=== PATIENT | female | born 1980 | race Caucasian/White ===

== ENCOUNTER 2017-06-29 08:03 | Outpatient (CLI) | payer OTHER ==
[~2017-06-29 08:03] MED LIST: ACETAMINOPHEN 325 MG TABLET PO PRN; DIPHENHYDRAMINE HCL 50 MG/ML VIAL IV PRN; IRON DEXTRAN COMPLEX 25 MG in SYRINGE, DISPOSABLE, 1 EACH IV PRN; IRON DEXTRAN COMPLEX 975 MG in NORMAL SALINE 1000 ML 1,000 ML IV PRN; NORMAL SALINE 250 ML IV PRN
[2017-06-29 08:59] VITALS: BP 102/60
== END 2017-06-29 14:00 | disposition home or self-care (01) ==
LOC: II 08:03 → 5TH 08:06 → II 14:00
PROVIDERS: ATTEND Internal Medicine
PROC: 3E033GC Introduction of Other Therapeutic Substance into Peripheral Vein, Percutaneous Approach (ICD-10-PCS; principal; 2017-06-29)
DX: D50.8 Other iron deficiency anemias (principal)
CPT/HCPCS: 96365; 96366; 96374; 96375; J1200; J1750; J7030; J3490

== ENCOUNTER 2018-08-25 05:40 | Day surgery (SDC) | payer OTHER ==
[2018-08-24 12:23] LABS: HEMATOCRIT 41.8 % (36.0-47.0); HEMOGLOBIN 14.1 g/dL (12.0-15.5); MEAN CORPUSCULAR HEMOGLOBIN 30.9 pg (27.0-33.4); MEAN CORPUSCULAR HGB CONC 33.6 g/dL (32.0-36.0); MEAN CORPUSCULAR VOLUME 92 fl (80-97); PLATELET COUNT 229 10^3/uL (150-450); RED BLOOD COUNT 4.55 10^6/uL (3.72-5.28); RED CELL DISTRIBUTION WIDTH 13.6 % (11.5-14.0); WHITE BLOOD COUNT 5.4 10^3/uL (4.0-10.5)
[2018-08-24 12:29] LABS: APPEARANCE,URINE CLEAR; BILIRUBIN,URINE NEGATIVE (NEGATIVE); COLOR,URINE STRAW; GLUCOSE, URINE NEGATIVE (NEGATIVE); KETONES,URINE NEGATIVE (NEGATIVE); LEUKOCYTE ESTERASE,URINE NEGATIVE (NEGATIVE); NITRITE,URINE NEGATIVE (NEGATIVE); PROTEIN,URINE NEGATIVE (NEGATIVE); URINE SPECIFIC GRAVITY 1.005; UROBILINOGEN,URINE NEGATIVE mg/dL (<2.0)
[2018-08-24 12:52] LABS: ALANINE AMINOTRANSFERASE 22 U/L (9-52); ALBUMIN 4.7 g/dL (3.5-5.0); ALKALINE PHOSPHATASE 40 U/L (38-126); ANION GAP 10 (5-19); ASPARTATE AMINO TRANSFERASE 24 U/L (14-36); BILIRUBIN,DIRECT 0.3 mg/dL (0.0-0.4); BILIRUBIN,TOTAL 0.6 mg/dL (0.2-1.3); BLOOD UREA NITROGEN 12 mg/dL (7-20); CALCIUM 9.9 mg/dL (8.4-10.2); CARBON DIOXIDE 27 mmol/L (22-30); CHLORIDE 101 mmol/L (98-107); GLUCOSE 82 mg/dL (75-110); POTASSIUM 4.6 mmol/L (3.6-5.0); TOTAL PROTEIN 7.7 g/dL (6.3-8.2)
[~2018-08-25 05:40] MED LIST changes: -ACETAMINOPHEN 325 MG TABLET PO PRN; +CEFAZOLIN 2 GM/D5W RTU 2 GM/50 ML RTUPB IV ONE; +CEFAZOLIN 2 GM/D5W RTU 2 GM/50 ML RTUPB IV SCH; -DIPHENHYDRAMINE HCL 50 MG/ML VIAL IV PRN; -IRON DEXTRAN COMPLEX 25 MG in SYRINGE, DISPOSABLE, 1 EACH IV PRN; -IRON DEXTRAN COMPLEX 975 MG in NORMAL SALINE 1000 ML 1,000 ML IV PRN; +LACTATED RINGERS 1000 ML IV PRN; +LIDOCAINE 0.5% INJ-PF (5 MG/ML) 50 ML SDV SUBCUT PRN; -NORMAL SALINE 250 ML IV PRN
[2018-08-25] MEDS ORDERED: KETOROLAC TROMETHAMINE 60 MG/2 ML SDV ONE (07:05)
[2018-08-25] MEDS ORDERED: FENTANYL CITRATE INJ/PF 100 MCG/2 ML AMPUL ONE ×2 (07:05→10:29)
[2018-08-25] MEDS ORDERED: ONDANSETRON HCL INJ/PF 4 MG/2 ML SDV ONE (07:06)
[2018-08-25] MEDS ORDERED: MIDAZOLAM 2 MG/2 ML INJ ONE (07:06)
[2018-08-25] MEDS ORDERED: ACETAMINOPHEN 1,000 MG/100 ML RTUPB IV ONE (07:06)
[2018-08-25] MEDS ORDERED: PROPOFOL INJ 200 MG/20 ML VIAL IV ONE (07:06)
[2018-08-25] MEDS ORDERED: HYDROMORPHONE HCL INJ/PF 2 MG/ML AMPULE ONE (07:06)
[2018-08-25] MEDS ORDERED: DEXAMETHASONE SOD PHOSPHATE INJ 4 MG/1 ML VIAL ONE (07:06)
[2018-08-25] MEDS ORDERED: DIPHENHYDRAMINE HCL 50 MG/ML VIAL IV PRN (08:09)
[2018-08-25] MEDS ORDERED: OXYCODONE-ACETAMINOPHEN 5-325 MG TABLET PO PRN ×3 (08:09→10:22)
[2018-08-25] MEDS ORDERED: PROMETHAZINE HCL INJ 25 MG/1 ML VIAL IV PRN ×2 (08:09)
[2018-08-25] MEDS ORDERED: ONDANSETRON HCL INJ/PF 4 MG/2 ML SDV IV PRN (08:09)
[2018-08-25] MEDS ORDERED: FENTANYL CITRATE INJ/PF 100 MCG/2 ML AMPUL IV PRN ×2 (08:09)
[2018-08-25] MEDS ORDERED: MEPERIDINE HCL/PF INJ 25 MG/1 ML DISP.SYRIN IV PRN (08:09)
[2018-08-25] MEDS ORDERED: MORPHINE SULFATE 10 MG/ML INJ IV PRN (08:09)
[2018-08-25] MEDS ORDERED: VECURONIUM BROMIDE INJ 10 MG VIAL IV ONE (08:37)
[2018-08-25] MEDS ORDERED: GLYCOPYRROLATE 1 MG/5 ML SYRINGE ONE (08:37)
[2018-08-25] MEDS ORDERED: NEOSTIGMINE METHYLSULFATE 10 MG/10 ML VIAL ONE (08:37)
[2018-08-25] MEDS ORDERED: SUCCINYLCHOLINE CHLORIDE INJ 200 MG/10 ML VIAL ONE (08:37)
[2018-08-25] MEDS ORDERED: ALPRAZOLAM 0.5 MG TABLET PO PRN (10:21)
[2018-08-25] MEDS ORDERED: DIPH/PERTUSS(ACELL)/TETANUS VAC/PF 0.5 ML SYR (>=10YO) IM PRN (10:22)
[2018-08-25] MEDS ORDERED: ACETAMINOPHEN 325 MG TABLET PO PRN (10:22)
[2018-08-25] MEDS ORDERED: SIMETHICONE 80 MG TAB.CHEW PO PRN (10:22)
[2018-08-25] MEDS ORDERED: ACETAMINOPHEN 1,000 MG/100 ML RTUPB IV PRN (10:22)
[2018-08-25] MEDS ORDERED: HYDROMORPHONE HCL INJ/PF 2 MG/ML AMPULE IV PRN (10:22)
[2018-08-25] MEDS ORDERED: MEASLES,MUMPS&RUBELLA VACC/PF 0.5 ML VIAL SUBCUT PRN (10:22)
[2018-08-25] MEDS ORDERED: RINGERS SOLUTION,LACTATED 1,000 ML IV PRN (10:22)
[2018-08-25] MEDS: FENTANYL CITRATE INJ/PF 100 MCG/2 ML AMPUL IV PRN ×2 (10:32→10:45)
--- NOTE | 2018-08-25 10:37 | Operative Report ---
Operative Report DATE OF SURGERY: 08/25/18 PREOPERATIVE DIAGNOSIS: Patient has uterine pain and heavy menses with pelvic c ongestion syndrome as well as adhesions from her previous over the bladder. POSTOPERATIVE DIAGNOSIS: Same OPERATION: Da Jacques hysterectomy and bilateral salpingectomy as well as lysis of adhesions. SURGEON: SHARMIN ELAINE ANESTHESIA: GA TISSUE REMOVED OR ALTERED: Uterus and fallopian tubes COMPLICATIONS: None ESTIMATED BLOOD LOSS: 50 cc INTRAOPERATIVE FINDINGS: The tubes and ovaries looked normal. Patient has a lot of varicosity laterally on each side of the uterus and adhesions overlying the bladder flap from her previous PROCEDURE: Patient was taken to the OR and placed in supine position. General anesthesia was induced. Her were prepared and draped in a sterile fashion. Her bladder was drained with a Anne catheter. A speculum was placed in the vagina and the cervix was grasped with a tenaculum. The uterus was sounded to 10 cm. The cervix was dilated in a V care uterine manipulator was placed. An incision was made above the umbilicus approximately 5 cm. The fascia was grasped and elevated and incised. This allowed the placement of a blunt port. Laparoscopy confirmed appropriate placement. The lateral incisions were made lateral to the inferior epigastric vessels in the lateral ports were placed under laparoscopic visualization. Also a right lower quadrant port for insufflation was placed under laparoscopic visualization. The patient was placed in steep Trendelenburg at this point and the robot was brought to the patient and docked. View of the pelvis was good. There were some filmy adhesions suspending the le ft colon which were taken down with cold karishma. This allowed good exposure to the left pelvis. Each fallopian tube was removed using monopolar cautery and passed off the field. The round ligaments were cauterized with bipolar cautery and cut with monopolar cautery bilaterally. The utero-ovarian pedicle likewise was cauterized with bipolar cautery and cut with monopolar cautery bilaterally. Next on the patient's right side the broad ligament was cauterized with bipolar and cut with monopolar bipolar cautery directly next to the uterus. This was carried out down to the level of the uterine artery. Likewise on the patient's left broad ligament was cauterized with bipolar and cut with monopolar cautery directly next to the uterus down to the level of the uterine artery. The anterior leaf of the broad ligament was incised creating a bladder flap. The uterine arteries were then cauterized with bipolar and cut with monopolar cautery directly next to the uterus. Next the cardinal ligaments were cauterized with bipolar and cut with monopolar cautery directly next to the uterus. These tissues were noted to be very vascular as previously suspected with her pelvic congestion syndrome. Care was taken to maintain hemostasis. Upon reaching the vaginal cuff a circumferential incision was made at the V care cup. The uterus was removed through the vagina. The vaginal cuff and bladder were inspected. There is no evidence of injury to the bladder. The vaginal cuff was made hemostatic with some light cautery using the bipolar at some areas of bleeding. Once hemostasis was obtained the cuff was closed. The V lock suture was passed into the field. The endoscopic karishma were exchanged for needle delivery motorcycle driver. The vaginal cuff was then closed by incorporating anterior vaginal cuff lateral vaginal mucosa and posterior vaginal cuff. The suture was then locked and pulled tight. Next anterior vaginal cuff was sewn to posterior vaginal cuff in a running fashion and upon reaching the left vaginal angle anterior vaginal Coso lateral vaginal mucosa and posterior vaginal cuff were incorporated into the stitch which closed the vagina. Several sutures were then taken medially and the stitch was cut. The pelvis was irrigated and fluid suctioned free. The vaginal cuff, angles and uterine artery pedicles were hemostatic. The utero-ovarian pedicles were inspected and these were hemostatic as well. The ureters could be seen and were small and peristalsing in the pelvis. At this point we stopped the robotic portion of the case. The robot was undocked from the patient. The laparoscopic view showed hemostasis as well with the patient out of steep Trendelenburg. The ports were removed under laparoscopic visualization. The gas was allowed to escape from the abdomen and the umbilical port and scope were removed in unison. The fascia at the umbilicus was closed with a 2-0 Vicryl stitch and the skin at all 4 sites closed with a 4-0 undyed Vicryl stitch. The patient was extubated in the OR and taken recovery room in stable condition.
[2018-08-25] MEDS: OXYCODONE-ACETAMINOPHEN 5-325 MG TABLET PO PRN ×3 (12:42→22:01)
[2018-08-25] MEDS ORDERED: KETOROLAC TROMETHAMINE INJ/PF 30 MG/1 ML SDV IV SCH (14:00)
[2018-08-25 15:10] LABS: HEMATOCRIT 36.9 % (36.0-47.0); HEMOGLOBIN 12.8 g/dL (12.0-15.5); MEAN CORPUSCULAR HEMOGLOBIN 31.6 pg (27.0-33.4); MEAN CORPUSCULAR HGB CONC 34.8 g/dL (32.0-36.0); MEAN CORPUSCULAR VOLUME 91 fl (80-97); PLATELET COUNT 183 10^3/uL (150-450); RED BLOOD COUNT 4.06 10^6/uL (3.72-5.28); RED CELL DISTRIBUTION WIDTH 13.5 % (11.5-14.0); WHITE BLOOD COUNT 9.9 10^3/uL (4.0-10.5)
[2018-08-25 15:33] LABS: ANION GAP 9 (5-19); BLOOD UREA NITROGEN 16 mg/dL (7-20); CALCIUM 9.2 mg/dL (8.4-10.2); CARBON DIOXIDE 23 mmol/L (22-30); CHLORIDE 101 mmol/L (98-107); GLUCOSE 112 mg/dL (75-110); POTASSIUM 4.5 mmol/L (3.6-5.0); SODIUM 132.5 mmol/L (137-145)
[2018-08-25 15:37] LABS: ABSOLUTE LYMPHOCYTES# (MANUAL) 0.6 10^3/uL (0.5-4.7); ABSOLUTE MONOCYTES # (MANUAL) 0.1 10^3/uL (0.1-1.4); ABSOLUTE NEUTROPHILS# (MANUAL) 9.2 10^3/uL (1.7-8.2); BASOPHILS % (MANUAL) 0 % (0-2); EOSINOPHILS % (MANUAL) 0 % (0-6); LYMPHOCYTES % (MANUAL) 6 % (13-45); MONOCYTES % (MANUAL) 1 % (3-13); SEGMENTED NEUTROPHILS % (MAN) 93 % (42-78); TOTAL CELLS COUNTED 100
[2018-08-25 15:38] LABS: PLATELET COMMENT ADEQUATE; TOXIC GRANULATION SLIGHT; TOXIC VACUOLATION PRESENT
[2018-08-25] MEDS: KETOROLAC TROMETHAMINE INJ/PF 30 MG/1 ML SDV IV SCH (17:08)
[2018-08-25] MEDS: DOCUSATE SODIUM 100 MG CAPSULE PO SCH (17:08)
[2018-08-25] MEDS: PROMETHAZINE HCL INJ 25 MG/1 ML VIAL IV PRN (19:19)
[2018-08-26] MEDS: KETOROLAC TROMETHAMINE INJ/PF 30 MG/1 ML SDV IV SCH ×2 (01:26→10:27)
[2018-08-26] MEDS: OXYCODONE-ACETAMINOPHEN 5-325 MG TABLET PO PRN ×2 (04:02→08:21)
[2018-08-26 06:23] LABS: HEMATOCRIT 33.6 % (36.0-47.0); HEMOGLOBIN 11.6 g/dL (12.0-15.5); MEAN CORPUSCULAR HEMOGLOBIN 31.4 pg (27.0-33.4); MEAN CORPUSCULAR HGB CONC 34.4 g/dL (32.0-36.0); MEAN CORPUSCULAR VOLUME 91 fl (80-97); PLATELET COUNT 189 10^3/uL (150-450); RED BLOOD COUNT 3.68 10^6/uL (3.72-5.28); RED CELL DISTRIBUTION WIDTH 13.5 % (11.5-14.0); WHITE BLOOD COUNT 9.5 10^3/uL (4.0-10.5)
[2018-08-26] MEDS: PROMETHAZINE HCL INJ 25 MG/1 ML VIAL IV PRN (08:27)
--- NOTE | 2018-08-26 09:00 | PDOC DISCHARGE SUMMARY ---
General - Admit/Disc Date/PCP Admission Date/Primary Care Provider: DORINDA AMBROCIO MD Discharge Date: 08/26/18 - Discharge Diagnosis (1) Pelvic pain Is this a current diagnosis for this admission?: Yes (2) Female pelvic congestion syndrome Is this a current diagnosis for this admission?: Yes - Additional Information Home Medications: Sertraline HCl [Zoloft 50 Mg Tablet] 50 mg PO DAILY 04/25/12 Alprazolam [Xanax 0.5 mg Tablet] 0.5 mg PO ASDIR PRN 08/24/18 History of Present Illness Patient complains of: Uterine pain and dysmenorrhea History of Present Illness: HEATHER PACHECO is a 38 year old female Patient has a history of ongoing pelvic pain and dysmenorrhea consistent with pelvic congestion syndrome. Her ultrasound findings and laparoscopy findings also demonstrate varicosities consistent with pelvic congestion syndrome. She desires hysterectomy for definitive treatment Hospital Course Hospital Course: Patient underwent a laparoscopic da Jacques hysterectomy. The findings were consistent with pelvic congestion syndrome. The ovaries were normal and were left in place. Overnight she did well and is ready to go home this morning on oral pain medication. Physical Exam - Physical Exam Vital Signs: Temp Pulse Resp BP Pulse Ox 98.8 F 63 14 106/48 L 96 08/26/18 00:00 08/26/18 00:00 08/26/18 00:00 08/26/18 00:00 08/26/18 00:00 Intake & Output 08/25/18 08/26/18 08/27/18 06:59 06:59 06:59 Intake Total 0 2625 Output Total 585 Balance 0 2040 Weight 65.77 kg General appearance: PRESENT: no acute distress, well-developed, well-nourished GI/Abdominal exam: PRESENT: normal bowel sounds, soft, other - She has expected incisional pain.. ABSENT: distended, guarding, mass, organolmegaly, rebound, tenderness Result Laboratory Results: 08/26/18 05:58 08/25/18 14:47 08/25/18 08/25/18 08/26/18 14:47 14:47 05:58 WBC 9.9 9.5 RBC 4.06 3.68 L Hgb 12.8 11.6 L Hct 36.9 33.6 L MCV 91 91 MCH 31.6 31.4 MCHC 34.8 34.4 RDW 13.5 13.5 Plt Count 183 189 Seg Neutrophils % Not Reportable Lymphocytes % Not Reportable Monocytes % Not Reportable Eosinophils % Not Reportable Basophils % Not Reportable Absolute Neutrophils Not Reportable Absolute Lymphocytes Not Reportable Absolute Monocytes Not Reportable Absolute Eosinophils Not Reportable Absolute Basophils Not Reportable Sodium 132.5 L Potassium 4.5 Chloride 101 Carbon Dioxide 23 Anion Gap 9 BUN 16 Creatinine 0.65 Est GFR ( Amer) > 60 Est GFR (Non-Af Amer) > 60 Glucose 112 H Calcium 9.2 Impressions: Postop day 1 doing well. She is tolerating oral pain medication and diet. She wishes to go home today. She will follow-up in 1 week. Plan Discharge Plan: Home to rest. Pelvic rest for 6-8 weeks. She will follow-up in 1 week in the office for checkup. Time Spent: Less than 30 Minutes
[2018-08-26] MEDS: DOCUSATE SODIUM 100 MG CAPSULE PO SCH (09:34)
[2018-08-26] MEDS ORDERED: SERTRALINE HCL 50 MG TABLET PO SCH (10:00)
[2018-08-26] MEDS ORDERED: PRENATAL VITAMIN W DHA CAPSULE PO SCH (10:00)
[2018-08-26 10:50] VITALS: BP 106/48
[2018-08-30] MEDS ORDERED: IBUPROFEN 800 MG TABLET PO SCH (18:00)
== END 2018-08-26 11:35 | disposition home or self-care (01) ==
LOC: OROUT 05:40 → EDSTATUS 10:00 → 2S 11:31 → OROUT 08-26 11:35
PROVIDERS: ATTEND Obstetrics & Gynecology
DX: N94.6 Dysmenorrhea, unspecified (principal); N72 Inflammatory disease of cervix uteri; D25.9 Leiomyoma of uterus, unspecified; N80.0 Endometriosis of uterus; N83.8 Other noninflammatory disorders of ovary, fallopian tube and broad ligament; K66.0 Peritoneal adhesions (postprocedural) (postinfection)
CPT/HCPCS: 58571; S2900; 36415; 80048; 80053; 81001; 81025; 840; 85025; 85027; 86850; 86900; 86901; 88307; 94799; J0131; J0330; J0690; J1100; J1170; J1885; J2250; J2405; J2550; J2704; J3010; J3490; J7120

== ENCOUNTER → 2019-09-19 | Outpatient (CLI) | payer OTHER ==
--- NOTE | 2019-09-19 15:08 | RADIOLOGY REPORT (SQ) ---
EXAM DESCRIPTION: CHEST PA/LATERAL IMAGES COMPLETED DATE/TIME: 09/19/2019 2:54 pm REASON FOR STUDY: CHEST PAIN, UNSPECIFIED COMPARISON: 2012. TECHNIQUE: Frontal and lateral radiographic views of the chest acquired. NUMBER OF VIEWS: Two view. LIMITATIONS: None. FINDINGS: LUNGS AND PLEURA: No opacities, masses or pneumothorax. No pleural effusion. MEDIASTINUM AND HILAR STRUCTURES: No masses or contour abnormalities. HEART AND VASCULAR STRUCTURES: Heart normal size. No evidence for failure. BONES: No acute findings. HARDWARE: None in the chest. OTHER: No other significant finding. IMPRESSION: NO SIGNIFICANT RADIOGRAPHIC FINDING IN THE CHEST. TECHNICAL DOCUMENTATION: JOB ID: [id number] 2010 [employer]- All Rights Reserved Reading location - IP/workstation name: [email or web address]
== END ==
LOC: OD 13:52
PROVIDERS: ATTEND Surgery
DX: R07.9 Chest pain, unspecified (principal)
CPT/HCPCS: 71046

== ENCOUNTER → 2019-09-19 | Outpatient (CLI) | payer OTHER ==
[2019-09-19 15:00] LABS: APPEARANCE,URINE CLEAR; BILIRUBIN,URINE NEGATIVE (NEGATIVE); COLOR,URINE STRAW; GLUCOSE, URINE NEGATIVE (NEGATIVE); KETONES,URINE NEGATIVE (NEGATIVE); LEUKOCYTE ESTERASE,URINE NEGATIVE (NEGATIVE); NITRITE,URINE NEGATIVE (NEGATIVE); PROTEIN,URINE NEGATIVE (NEGATIVE); URINE SPECIFIC GRAVITY 1.004; UROBILINOGEN,URINE NEGATIVE mg/dL (<2.0)
[2019-09-19 15:00] LABS: ABSOLUTE BASOPHILS # (AUTO) 0.1 10^3/uL (0.0-0.2); ABSOLUTE EOSINOPHILS # (AUTO) 0.1 10^3/uL (0.0-0.6); ABSOLUTE LYMPHOCYTES (AUTO) 2.4 10^3/uL (0.5-4.7); ABSOLUTE MONOCYTES (AUTO) 0.4 10^3/uL (0.1-1.4); ABSOLUTE NEUT (AUTO) 4.8 10^3/uL (1.7-8.2); BASOPHILS % (AUTO) 0.9 % (0-2); EOSINOPHILS % (AUTO) 1.7 % (0-6); HEMATOCRIT 42.9 % (36.0-47.0); HEMOGLOBIN 14.8 g/dL (12.0-15.5); LYMPHOCYTES % (AUTO) 30.7 % (13-45); MEAN CORPUSCULAR HEMOGLOBIN 31.4 pg (27.0-33.4); MEAN CORPUSCULAR HGB CONC 34.6 g/dL (32.0-36.0); MEAN CORPUSCULAR VOLUME 91 fl (80-97); MONOCYTES % (AUTO) 5.6 % (3-13); PLATELET COUNT 268 10^3/uL (150-450); RED BLOOD COUNT 4.73 10^6/uL (3.72-5.28); RED CELL DISTRIBUTION WIDTH 13.6 % (11.5-14.0); SEGMENTED NEUTROPHILS % (AUTO) 61.1 % (42-78); TOTAL CELLS COUNTED % (AUTO) 100 %; WHITE BLOOD COUNT 7.9 10^3/uL (4.0-10.5)
[2019-09-19 15:17] LABS: ANION GAP 9 (5-19); BLOOD UREA NITROGEN 15 mg/dL (7-20); CALCIUM 9.9 mg/dL (8.4-10.2); CARBON DIOXIDE 26 mmol/L (22-30); CHLORIDE 102 mmol/L (98-107); GLUCOSE 68 mg/dL (75-110); POTASSIUM 4.1 mmol/L (3.6-5.0)
== END ==
LOC: OD 13:46
PROVIDERS: ATTEND Physician Assistant Surgical
DX: R07.9 Chest pain, unspecified (principal); R10.9 Unspecified abdominal pain; R11.2 Nausea with vomiting, unspecified
CPT/HCPCS: 36415; 80048; 81001; 85025

== ENCOUNTER → 2019-09-21 | Outpatient (CLI) | payer OTHER ==
--- NOTE | 2019-09-21 09:14 | RADIOLOGY REPORT (SQ) ---
EXAM DESCRIPTION: U/S ABDOMEN LIMITED W/O DOP IMAGES COMPLETED DATE/TIME: 09/21/2019 8:39 am REASON FOR STUDY: RIGHT UPPER QUADRANT PAIN (R10.11) R10.11 RIGHT UPPER QUADRANT PAIN COMPARISON: None. TECHNIQUE: Dynamic and static grayscale images acquired of the abdomen and recorded on PACS. Additio nal selected color Doppler and spectral images recorded. LIMITATIONS: None. FINDINGS: PANCREAS: No masses. Visualized pancreatic duct normal caliber. LIVER: Fatty liver. The liver measures 16.1 cm in length, within normal limits for size. LIVER VASCULATURE: Normal directional flow of the main portal vein and hepatic veins. GALLBLADDER: No stones. The gallbladder wall measures 1.7 mm, normal wall thickness. No pericholecys tic fluid. ULTRASOUND-DETECTED URIOSTEGUI'S SIGN: Negative. INTRAHEPATIC DUCTS AND COMMON DUCT: CBD measures 3.4 mm in diameter, normal. The intrahepatic ducts normal caliber. No filling defects. INFERIOR VENA CAVA: Normal flow. AORTA: No aneurysm. RIGHT KIDNEY: The right kidney measures 8.6 cm x 3.4 x 4.8 cm. Normal echogenicity. No solid or gregorio picious masses. No hydronephrosis. No calcifications. PERITONEAL AND RIGHT PLEURAL SPACE: No ascites or effusions. OTHER: No other significant findings. IMPRESSION: 1. Fatty liver. TECHNICAL DOCUMENTATION: JOB ID: [id number] [employer]- All Rights Reserved Reading location - IP/workstation name: [email or web address]
== END ==
LOC: RAD 07:35
PROVIDERS: ATTEND Surgery
DX: R10.11 Right upper quadrant pain (principal)
CPT/HCPCS: 76705